=== PATIENT | female | born 2000 | race African-American/Black ===

== ENCOUNTER 2021-05-06 06:29 | Emergency (ER) | payer OTHER ==
[~2021-05-06] VITALS: Ht 157.5 cm; Wt 49.5 kg
[2021-05-06 06:51] LABS: BILIRUBIN,URINE NEGATIVE (NEG); CLARITY,URINE CLEAR; COLOR,URINE YELLOW; NITRITE,URINE NEGATIVE (NEG); PH,URINE 6.5 (<5.0-8.0); PROTEIN,URINE NEGATIVE (NEG-TRACE); UROBILINOGEN,URINE 0.2 mg/dL (0.2 mg/dL)
[2021-05-06 07:03] LABS: BACTERIA,URINE FEW /HPF (0-FEW); RBC,URINE 0 /HPF (0-2); WBC,URINE OCC /HPF (0-4)
--- NOTE | 2021-05-06 07:09 | PHYS DOC ---
Past Medical History Past Medical History: No Pertinent History Past Surgical History: No Surgical History Smoking Status: Never Smoker Alcohol Use: None Drug Use: None General Adult EDM: Chief Complaint: NAUSEA/VOMITING/DIARRHEA Problems: (1) Nausea HPI: HPI: 20-year-old female with no past medical history reports to the emergency department complaining of multiple complaints including nausea, vomiting, fatigue, cough, fever. She has not been vaccinated for Covid and reports that she has been in contact with several people who have all tested positive. She has been able to eat and drink at home. She denies chance of secondary to being a lesbian. She also takes control. Periods are irregular secondary to control. The patient admits to fever cough and chills denies chest pain, shortness of breath, abdominal pain, urinary symptoms, recent trauma, or any other complaints. Review of Systems: Review of Systems: ROS is otherwise negative except for what was documented in the HPI Heart Score: C/O Chest Pain: N/A Family History: Family History: Noncontributory Current Medications: My Orders - LALIT ZUNIGA DO Procedure Category Date Status Time Sars Cov2 ([place]) LAB 05/06/21 In Process 06:34 Sars Antigen Edyta Rapid LAB 05/06/21 In Process 06:34 Urine Test CHELO 05/06/21 In Process 06:34 Ua, Cult If Indicated LAB 05/06/21 Complete 06:34 Ketorolac 15mg Vial PHA 05/06/21 In Process (Toradol 15mg Vial) 07:15 Ondansetron Odt PHA 05/06/21 In Process (Zofran Odt) 07:15 Chest Ap Only RAD 05/06/21 Logged 07:01 Allergies: Allergies: Allergies Coded Allergies Type Severity Reaction Last Updated Verified fluoxetine Allergy Intermediate 05/06/21 Yes Physical Exam: PE: Constitutional: No acute distress, non-toxic appearance. HENT: Atraumatic, bilateral external ears normal, nose normal. Eyes: PERRLA, EOMI, conjunctiva normal, no discharge. Neck: Normal range of motion, supple, no stridor. Cardiovascular: Heart rate regular rhythm. 2+ radial pulses Lungs & Thorax: No respiratory distress, symmetrical expansion. Bilateral breath sounds clear to auscultation Abdomen: Soft, no tenderness Skin: Warm, dry. Extremities: No tenderness, no cyanosis, ROM intact, no edema. Neurologic: Alert and oriented X 3, normal motor function, normal sensory function, no focal deficits noted. Non ataxic gait. GCS 15. Psychologic: Affect normal, judgment normal, mood normal. Current Patient Data: Labs: Laboratory Tests Test 05/06/21 06:30 05/06/21 06:40 Urine Collection Type Unknown Urine Color Yellow Urine Clarity Clear Urine pH 6.5 (<5.0-8.0) Urine Specific [place] 1.025 (1.000-1.030) Urine Protein Negative mg/dL (NEG-TRACE) Urine Glucose (UA) Negative mg/dL (NEG) Urine Ketones (Stick) Negative mg/dL (NEG) Urine Blood Negative (NEG) Urine Nitrite Negative (NEG) Urine Bilirubin Negative (NEG) Urine Urobilinogen Dipstick 0.2 mg/dL (0.2 mg/dL) Urine Leukocyte Esterase Negative (NEG) Urine RBC 0 /HPF (0-2) Urine WBC Occ /HPF (0-4) Urine Squamous Epithelial Cells Mod /LPF Urine Bacteria Few /HPF (0-FEW) Urine Mucus Slight /LPF POC Urine HCG, Qualitative Hcg negative (Negative) Vital Signs: Vital Signs Date Time Temp Pulse Resp B/P (MAP) Pulse Ox O2 Delivery O2 Flow Rate FiO2 05/06/21 06:50 98.5 99 20 119/70 98 Room Air 98.5 Radiology/Procedures: Radiology/Procedures: PROCEDURE: CHEST AP ONLY AP chest. HISTORY: Cough AP view was taken of the chest. Lungs are free of infiltrates. Heart is normal in size. There is no pleural effusion. IMPRESSION: 1. No acute infiltrates. Electronically signed by: Nikhil Jara MD Course & Med Decision Making: Course & Med Decision Making Patient's COVID-19 test rapid was negative, highly suspect a false positive in this case due to her close contacts and viral type symptoms today. She is advised to self quarantine until her PCR result returns. Further work-up is u nremarkable and patient clinically looks well Departure Departure Impression: Primary Impression: Viral infection Disposition: 01 HOME / SELF CARE / HOMELESS Condition: STABLE Referrals: NO PCP (PCP) Patient Instructions: Diarrhea, Tofl-vs-Gwrk Additional Instructions: You were seen in the emergency department for a viral infection, most likely from COVID-19. You should return to the ED if you develop worsening cough, shortness of breath, chest pain, or any other new or concerning symptoms. You can use an OTC sinus rinse to help with sinus congestion. Your cough may persist for a few weeks but your other symptoms should gradually improve. You should make sure to drink plenty of fluids at home. You may use Tylenol at home for fevers every 4-6 hours no more than 4000 mg/day. Please remember it is very important that you self isolate/quarantine at home, stay away from family and friends, and stay away from work until you are cleared by your physician or you test negative and are asymptomatic. LALIT ZUNIGA DO May 06, 2021 07:09
[2021-05-06] MEDS ORDERED: KETOROLAC 15 MG/ML VIAL. IM ONE (07:15)
[2021-05-06] MEDS ORDERED: ONDANSETRON ODT 4 MG TAB.RAPDIS. PO ONE (07:15)
--- NOTE | 2021-05-06 08:10 | RAD ---
AP chest. HISTORY: Cough AP view was taken of the chest. Lungs are free of infiltrates. Heart is normal in size. There is no p leural effusion. IMPRESSION: 1. No acute infiltrates. Electronically signed by: Nikhil Jara MD (05/06/2021 8:07 AM) [id number]
[2021-05-06 08:12] VITALS: BP 124/91
--- NOTE | 2021-05-06 17:28 | NUR ---
IP: Informed pt of negative covid test. Pt verbalized understanding,
== END 2021-05-06 08:35 | disposition home or self-care (01) ==
LOC: ER 06:29
DX: B34.9 Viral infection, unspecified (principal); Z20.822 Contact with and (suspected) exposure to COVID-19; Z88.8 Allergy status to other drugs, medicaments and biological substances
CPT/HCPCS: 71045; 81001; 81025; 87426; 99284; U0003; U0005

== ENCOUNTER 2021-09-05 07:49 | Emergency (ER) | payer OTHER ==
[~2021-09-05] VITALS: Ht 157.5 cm; Wt 61.2 kg
[2021-09-05 08:10] VITALS: BP 131/93
[2021-09-05] MEDS ORDERED: ACETAMINOPHEN 500 MG TABLET PO ONE (08:15)
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
== END 2021-09-05 09:33 | disposition home or self-care (01) ==
LOC: ER 07:49
DX: S00.83XA Contusion of other part of head, initial encounter (principal); Z88.8 Allergy status to other drugs, medicaments and biological substances; V49.49XA Driver injured in collision with other motor vehicles in traffic accident, initial encounter; Y93.89 Activity, other specified; Y92.488 Other paved roadways as the place of occurrence of the external cause; Y99.8 Other external cause status
CPT/HCPCS: 70450; 72125; 99284-25